=== PATIENT | male | born 1960 | race Caucasian/White ===

== ENCOUNTER 2018-03-30 10:23 | Emergency (ER) | payer MEDICARE, MEDICAID ==
[~2018-03-30] VITALS: Ht 182.9 cm; Wt 96.5 kg
[~2018-03-30 10:23] MED LIST: NO HOME MEDS
[2018-03-30 10:44] VITALS: BP 139/56
[2018-03-30 13:01] LABS: BASOPHILS # (AUTO) 0.1 X10'3 (0-0.2); BASOPHILS % (AUTO) 1.1 % (0-1); EOSINOPHILS # (AUTO) 0.3 X10'3 (0-0.9); EOSINOPHILS % (AUTO) 3.5 % (0-6); HEMATOCRIT 40.3 % (42.0-52.0); HEMOGLOBIN 13.2 g/dl (14.0-17.9); LYMPHOCYTES # (AUTO) 1.5 X10'3 (1.1-4.8); LYMPHOCYTES % (AUTO) 16.2 % (21-51); MEAN CORPUSCULAR HEMOGLOBIN 27.2 PG (27.0-31.0); MEAN CORPUSCULAR HGB CONC 32.8 % (33.0-36.5); MEAN PLATELET VOLUME 8.7 FL (7.4-10.4); MONOCYTES % (AUTO) 11.1 % (2-12); NEUTROPHILS # (AUTO) 6.3 X10'3 (1.8-7.7); NEUTROPHILS % (AUTO) 68.1 % (42-75); PLATELET COUNT 321 X10'3 (140-440); RED BLOOD COUNT 4.85 X10'6 (4.70-6.10); RED CELL DISTRIBUTION WIDTH 15.8 % (11.5-14.5); WHITE BLOOD COUNT 9.3 X10'3 (4.5-11.0)
[2018-03-30 13:16] LABS: ALANINE AMINOTRANSFERASE 12 U/L (12-78); ALBUMIN 3.2 G/DL (3.4-5.0); ALBUMIN/GLOBULIN RATIO 0.7 (1.1-1.5); ALKALINE PHOSPHATASE 107 IU/L (46-116); ANION GAP 11 (8-16); ASPARTATE AMINO TRANSFERASE 11 U/L (10-37); BILIRUBIN,TOTAL 0.3 MG/DL (0.1-1.0); BLOOD UREA NITROGEN 23 MG/DL (7-18); BUN/CREATININE RATIO 18.4 (5.4-32.0); CALCIUM 8.8 MG/DL (8.5-10.1); CHLORIDE 104 MMOL/L (99-107); CREATININE 1.25 MG/DL (0.60-1.10); GLUCOSE 122 MG/DL (70-104); POTASSIUM 4.1 MMOL/L (3.5-5.1); SODIUM 141 MMOL/L (135-145); TOTAL CARBON DIOXIDE 26.4 MMOL/L (24-32); TOTAL PROTEIN 7.6 G/DL (6.4-8.2); eGFR 59 ML/MIN
[2018-03-30] MEDS ORDERED: sulfamethoxazole/trimethoprim DS (800/160mg) tablet PO ONE (14:35)
[2018-03-30] MEDS ORDERED: cephalexin 500mg capsule PO ONE (14:35)
[2018-03-30] MEDS ORDERED: TETanus/Pertussis (Acell)/Diphther VAC/PF (Tdap-Adult) 0.5ml syringe IMVAC ONE (14:35)
[2018-03-30] MEDS ORDERED: CEPH500C2 PO (14:40)
[2018-03-30] MEDS ORDERED: BACDS PO (14:40)
[2018-03-30] MEDS ORDERED: MUPI22OI30 TOP (14:40)
== END 2018-03-30 14:56 | disposition home or self-care (01) ==
LOC: ER 10:25
DX: S91.104A Unspecified open wound of right lesser toe(s) without damage to nail, initial encounter (principal); I10 Essential (primary) hypertension; E11.9 Type 2 diabetes mellitus without complications; F12.90 Cannabis use, unspecified, uncomplicated; Z59.0 Homelessness; Z60.2 Problems related to living alone; Z79.2 Long term (current) use of antibiotics; Z79.899 Other long term (current) drug therapy; X58.XXXA Exposure to other specified factors, initial encounter; Y93.89 Activity, other specified; Y92.89 Other specified places as the place of occurrence of the external cause; Y99.8 Other external cause status
CPT/HCPCS: 36415; 73630; 80053; 82948; 85025; 85651; 90471; 90715; 99285

== ENCOUNTER 2018-04-22 08:50 | Day surgery (SDC) | payer MEDICARE, MEDICAID ==
[~2018-04-22 08:50] MED LIST changes: +CEPH500C2 PO
[2018-04-22] MEDS ORDERED: LIDOcaine 2% 5ml jelly ONE (12:03)
[2018-04-22] MEDS ORDERED: METF500T PO (12:17)
[2018-04-22] MEDS ORDERED: CLIN300C12 (12:18)
[2018-04-22 12:48] LABS: BASOPHILS # (AUTO) 0.1 X10'3 (0-0.2); BASOPHILS % (AUTO) 1.2 % (0-1); EOSINOPHILS # (AUTO) 0.2 X10'3 (0-0.9); EOSINOPHILS % (AUTO) 3.6 % (0-6); HEMATOCRIT 40.7 % (42.0-52.0); HEMOGLOBIN 13.3 g/dl (14.0-17.9); LYMPHOCYTES # (AUTO) 1.5 X10'3 (1.1-4.8); LYMPHOCYTES % (AUTO) 24.2 % (21-51); MEAN CORPUSCULAR HEMOGLOBIN 26.8 PG (27.0-31.0); MEAN CORPUSCULAR HGB CONC 32.7 % (33.0-36.5); MEAN CORPUSCULAR VOLUME 81.9 FL (78-98); MEAN PLATELET VOLUME 8.5 FL (7.4-10.4); MONOCYTES # (AUTO) 0.7 X10'3 (0-0.9); MONOCYTES % (AUTO) 10.3 % (2-12); NEUTROPHILS # (AUTO) 3.9 X10'3 (1.8-7.7); NEUTROPHILS % (AUTO) 60.7 % (42-75); PLATELET COUNT 365 X10'3 (140-440); RED BLOOD COUNT 4.96 X10'6 (4.70-6.10); RED CELL DISTRIBUTION WIDTH 14.5 % (11.5-14.5); WHITE BLOOD COUNT 6.4 X10'3 (4.5-11.0)
[2018-04-22 12:55] LABS: HEMOGLOBIN A1C 7.4 % (4.5-6.2)
[2018-04-22 13:12] LABS: ALANINE AMINOTRANSFERASE 16 U/L (12-78); ALBUMIN 3.4 G/DL (3.4-5.0); ALBUMIN/GLOBULIN RATIO 0.8 (1.1-1.5); ALKALINE PHOSPHATASE 86 IU/L (46-116); ANION GAP 7 (8-16); ASPARTATE AMINO TRANSFERASE 16 U/L (10-37); BILIRUBIN,TOTAL 0.3 MG/DL (0.1-1.0); BLOOD UREA NITROGEN 30 MG/DL (7-18); BUN/CREATININE RATIO 22.9 (5.4-32.0); CHLORIDE 105 MMOL/L (99-107); CREATININE 1.31 MG/DL (0.60-1.10); GLUCOSE 106 MG/DL (70-104); POTASSIUM 4.5 MMOL/L (3.5-5.1); PREALBUMIN 25.6 MG/DL (19-36); SODIUM 140 MMOL/L (135-145); TOTAL CARBON DIOXIDE 28.4 MMOL/L (24-32); TOTAL PROTEIN 7.9 G/DL (6.4-8.2); eGFR 56 ML/MIN
== END 2018-04-22 13:05 | disposition home or self-care (01) ==
LOC: WOUND CARE 08:50
PROVIDERS: ATTEND Surgery
DX: E11.621 Type 2 diabetes mellitus with foot ulcer (principal); L97.512 Non-pressure chronic ulcer of other part of right foot with fat layer exposed; E11.65 Type 2 diabetes mellitus with hyperglycemia; E11.40 Type 2 diabetes mellitus with diabetic neuropathy, unspecified; I10 Essential (primary) hypertension; F12.90 Cannabis use, unspecified, uncomplicated; Z79.2 Long term (current) use of antibiotics; Z79.899 Other long term (current) drug therapy
CPT/HCPCS: 11042; 36415; 36416; 80053; 82948; 83036; 84134; 85025; 85651; A6021; A6206; A6209; A6446; L3260

== ENCOUNTER 2018-04-29 08:45 | Day surgery (SDC) | payer MEDICARE, MEDICAID ==
[~2018-04-29 08:45] MED LIST changes: -CEPH500C2 PO; +CLIN300C12; +METF500T PO; -NO HOME MEDS
[2018-04-29] MEDS ORDERED: LIDOcaine 2% 5ml jelly ONE (10:07)
== END 2018-04-29 11:20 | disposition home or self-care (01) ==
LOC: WOUND CARE 08:45
PROVIDERS: ATTEND Surgery
DX: E11.621 Type 2 diabetes mellitus with foot ulcer (principal); L97.512 Non-pressure chronic ulcer of other part of right foot with fat layer exposed; E11.65 Type 2 diabetes mellitus with hyperglycemia; E11.40 Type 2 diabetes mellitus with diabetic neuropathy, unspecified; I10 Essential (primary) hypertension; F12.90 Cannabis use, unspecified, uncomplicated; Z79.2 Long term (current) use of antibiotics; Z79.899 Other long term (current) drug therapy
CPT/HCPCS: 11042; 36416; 82948; A6021; A6206; A6209; A6446

== ENCOUNTER 2018-05-20 09:27 | Day surgery (SDC) | payer MEDICARE, MEDICAID ==
[~2018-05-20 09:27] MED LIST changes: +CEPH-572 PO; -CLIN300C12
[2018-05-21] MEDS ORDERED: HYDR-3965 PO (09:33)
== END 2018-05-20 11:25 | disposition home or self-care (01) ==
LOC: WOUND CARE 09:27
PROVIDERS: ATTEND Surgery
DX: E11.621 Type 2 diabetes mellitus with foot ulcer (principal); L97.512 Non-pressure chronic ulcer of other part of right foot with fat layer exposed; E11.65 Type 2 diabetes mellitus with hyperglycemia; E11.40 Type 2 diabetes mellitus with diabetic neuropathy, unspecified; I10 Essential (primary) hypertension; F12.90 Cannabis use, unspecified, uncomplicated; Z79.2 Long term (current) use of antibiotics; Z79.899 Other long term (current) drug therapy
CPT/HCPCS: 11042; 36416; 82948; A6021; A6209; A6222; A6446

== ENCOUNTER 2018-05-21 08:38 | Emergency (ER) | payer MEDICARE, MEDICAID ==
[~2018-05-21] VITALS: Ht 182.9 cm; Wt 86.4 kg
[2018-05-21 08:41] VITALS: BP 148/62
[2018-05-21] MEDS ORDERED: HYDR-3965 PO (09:33)
[2018-05-21] MEDS ORDERED: HYDROcodone/acetaminophen 10/325mg tab PO ONE (09:35)
[2018-05-21] MEDS ORDERED: insulin regular, human 10 units/0.1 ml syringe SQ ONE (09:35)
== END 2018-05-21 10:23 | disposition home or self-care (01) ==
LOC: ER 08:38
DX: E11.622 Type 2 diabetes mellitus with other skin ulcer (principal); L97.519 Non-pressure chronic ulcer of other part of right foot with unspecified severity; I10 Essential (primary) hypertension; F12.90 Cannabis use, unspecified, uncomplicated; Z59.0 Homelessness; X58.XXXA Exposure to other specified factors, initial encounter; Y93.89 Activity, other specified; Y92.89 Other specified places as the place of occurrence of the external cause; Y99.8 Other external cause status
CPT/HCPCS: 82948; 96372; 99284; J1815; 99283; J7030

== ENCOUNTER 2018-05-27 08:40 | Day surgery (SDC) | payer MEDICARE, MEDICAID ==
[~2018-05-27 08:40] MED LIST changes: +HYDR-3965 PO
[2018-05-27] MEDS ORDERED: LIDOcaine/PRILOcaine 5gm cream TP ONE (09:46)
== END 2018-05-27 11:20 | disposition home or self-care (01) ==
LOC: WOUND CARE 08:40
PROVIDERS: ATTEND Surgery
DX: E11.621 Type 2 diabetes mellitus with foot ulcer (principal); L97.512 Non-pressure chronic ulcer of other part of right foot with fat layer exposed; E11.65 Type 2 diabetes mellitus with hyperglycemia; E11.40 Type 2 diabetes mellitus with diabetic neuropathy, unspecified; I10 Essential (primary) hypertension; F12.90 Cannabis use, unspecified, uncomplicated; Z79.2 Long term (current) use of antibiotics; Z79.899 Other long term (current) drug therapy
CPT/HCPCS: 11042; 36416; 82948; 87070; 87075; 87102; 87176; 87186; A6021; A6206; A6209; A6446; 87077

== ENCOUNTER 2018-06-03 08:48 | Day surgery (SDC) | payer MEDICARE, MEDICAID ==
[2018-06-03] MEDS ORDERED: LIDOcaine/PRILOcaine 5gm cream TP ONE (10:57)
[2018-06-03] MEDS ORDERED: LIDOcaine 1%/PF 5ML 10 MG/ML VIAL ONE (11:26)
== END 2018-06-03 12:35 | disposition home or self-care (01) ==
LOC: WOUND CARE 08:48
PROVIDERS: ATTEND Surgery
DX: E11.621 Type 2 diabetes mellitus with foot ulcer (principal); L97.512 Non-pressure chronic ulcer of other part of right foot with fat layer exposed; E11.65 Type 2 diabetes mellitus with hyperglycemia; E11.40 Type 2 diabetes mellitus with diabetic neuropathy, unspecified; I10 Essential (primary) hypertension; F12.90 Cannabis use, unspecified, uncomplicated; Z79.2 Long term (current) use of antibiotics; Z79.899 Other long term (current) drug therapy
CPT/HCPCS: 11042; 36416; 82948; A6206; A6266; A6446; J2001

== ENCOUNTER 2018-06-06 09:39 | Day surgery (SDC) | payer MEDICARE, MEDICAID ==
[~2018-06-06 09:39] MED LIST changes: -CEPH-572 PO
[2018-06-06] MEDS ORDERED: AMOX-422 PO (14:27)
== END 2018-06-06 12:03 | disposition home or self-care (01) ==
LOC: WOUND CARE 09:39
PROVIDERS: ATTEND Surgery
DX: E11.621 Type 2 diabetes mellitus with foot ulcer (principal); L97.512 Non-pressure chronic ulcer of other part of right foot with fat layer exposed; E11.65 Type 2 diabetes mellitus with hyperglycemia; E11.40 Type 2 diabetes mellitus with diabetic neuropathy, unspecified; I10 Essential (primary) hypertension; F12.10 Cannabis abuse, uncomplicated; Z79.2 Long term (current) use of antibiotics; Z79.899 Other long term (current) drug therapy
CPT/HCPCS: 11042; 36416; 82948; A6206; A6266; A6446

== ENCOUNTER 2018-06-10 09:38 | Day surgery (SDC) | payer MEDICARE, MEDICAID ==
[~2018-06-10 09:38] MED LIST changes: +AMOX-422 PO
[2018-06-10] MEDS ORDERED: LIDOcaine/PRILOcaine 5gm cream TP ONE (11:04)
[2018-06-10] MEDS ORDERED: LIDOcaine 1%/PF 5ML 10 MG/ML VIAL ONE (11:18)
== END 2018-06-10 12:09 | disposition home or self-care (01) ==
LOC: WOUND CARE 09:38
PROVIDERS: ATTEND Surgery
DX: E11.621 Type 2 diabetes mellitus with foot ulcer (principal); L97.512 Non-pressure chronic ulcer of other part of right foot with fat layer exposed; E11.65 Type 2 diabetes mellitus with hyperglycemia; E11.40 Type 2 diabetes mellitus with diabetic neuropathy, unspecified; I10 Essential (primary) hypertension; F12.10 Cannabis abuse, uncomplicated; Z79.2 Long term (current) use of antibiotics; Z79.899 Other long term (current) drug therapy
CPT/HCPCS: 11044; 36416; 82948; A6206; A6266; A6446; J2001

== ENCOUNTER 2018-06-13 09:36 | Day surgery (SDC) | payer MEDICARE, MEDICAID ==
[2018-06-13] MEDS ORDERED: LIDOcaine/PRILOcaine 5gm cream TP ONE (11:22)
== END 2018-06-13 12:17 | disposition home or self-care (01) ==
LOC: WOUND CARE 09:36
PROVIDERS: ATTEND Surgery
DX: E11.621 Type 2 diabetes mellitus with foot ulcer (principal); L97.514 Non-pressure chronic ulcer of other part of right foot with necrosis of bone; E11.65 Type 2 diabetes mellitus with hyperglycemia; E11.40 Type 2 diabetes mellitus with diabetic neuropathy, unspecified; I10 Essential (primary) hypertension; F12.10 Cannabis abuse, uncomplicated; Z79.2 Long term (current) use of antibiotics; Z79.899 Other long term (current) drug therapy
CPT/HCPCS: 11044; 36416; 82948; A6206; A6266; A6446

== ENCOUNTER 2018-06-17 09:35 | Day surgery (SDC) | payer MEDICARE, MEDICAID | END 2018-06-17 12:19 | disposition home or self-care (01) | LOC: WOUND CARE 09:35 | PROVIDERS: ATTEND Surgery | DX: E11.621 Type 2 diabetes mellitus with foot ulcer (principal); L97.514 Non-pressure chronic ulcer of other part of right foot with necrosis of bone; E11.65 Type 2 diabetes mellitus with hyperglycemia; E11.40 Type 2 diabetes mellitus with diabetic neuropathy, unspecified; I10 Essential (primary) hypertension; F12.10 Cannabis abuse, uncomplicated; Z79.2 Long term (current) use of antibiotics; Z79.899 Other long term (current) drug therapy | CPT/HCPCS: 11044; 36416; 82948; A6021; A6206; A6209; A6446; 88305; 88311 ==

== ENCOUNTER 2018-06-20 09:40 | Day surgery (SDC) | payer MEDICARE, MEDICAID ==
[2018-06-20] MEDS ORDERED: LIDOcaine/PRILOcaine 5gm cream TP ONE (11:29)
== END 2018-06-20 13:17 | disposition home or self-care (01) ==
LOC: WOUND CARE 09:40
PROVIDERS: ATTEND Surgery
DX: E11.621 Type 2 diabetes mellitus with foot ulcer (principal); L97.514 Non-pressure chronic ulcer of other part of right foot with necrosis of bone; E11.65 Type 2 diabetes mellitus with hyperglycemia; E11.40 Type 2 diabetes mellitus with diabetic neuropathy, unspecified; I10 Essential (primary) hypertension; E11.69 Type 2 diabetes mellitus with other specified complication; M86.171 Other acute osteomyelitis, right ankle and foot; F12.10 Cannabis abuse, uncomplicated; Z79.2 Long term (current) use of antibiotics; Z79.899 Other long term (current) drug therapy
CPT/HCPCS: 11042; 36416; 82948; A6021; A6206; A6209; A6446

== ENCOUNTER 2018-06-24 09:38 | Day surgery (SDC) | payer MEDICARE, MEDICAID ==
[~2018-06-24 09:38] MED LIST changes: -HYDR-3965 PO
== END 2018-06-24 12:50 | disposition home or self-care (01) ==
LOC: WOUND CARE 09:38
PROVIDERS: ATTEND Surgery
DX: E11.621 Type 2 diabetes mellitus with foot ulcer (principal); L97.514 Non-pressure chronic ulcer of other part of right foot with necrosis of bone; E11.65 Type 2 diabetes mellitus with hyperglycemia; E11.40 Type 2 diabetes mellitus with diabetic neuropathy, unspecified; I10 Essential (primary) hypertension; E11.69 Type 2 diabetes mellitus with other specified complication; M86.171 Other acute osteomyelitis, right ankle and foot; F12.10 Cannabis abuse, uncomplicated; Z79.2 Long term (current) use of antibiotics; Z79.899 Other long term (current) drug therapy
CPT/HCPCS: 11042; 36416; 82948; A6021; A6206; A6209; A6446

== ENCOUNTER 2018-07-01 08:54 | Day surgery (SDC) | payer MEDICARE, MEDICAID ==
[2018-07-01] MEDS ORDERED: LIDOcaine/PRILOcaine 5gm cream TP ONE (11:16)
== END 2018-07-01 12:40 | disposition home or self-care (01) ==
LOC: WOUND CARE 08:54
PROVIDERS: ATTEND Surgery
DX: E11.621 Type 2 diabetes mellitus with foot ulcer (principal); L97.514 Non-pressure chronic ulcer of other part of right foot with necrosis of bone; E11.65 Type 2 diabetes mellitus with hyperglycemia; E11.40 Type 2 diabetes mellitus with diabetic neuropathy, unspecified; I10 Essential (primary) hypertension; E11.69 Type 2 diabetes mellitus with other specified complication; M86.171 Other acute osteomyelitis, right ankle and foot; F12.10 Cannabis abuse, uncomplicated; Z79.2 Long term (current) use of antibiotics; Z79.899 Other long term (current) drug therapy
CPT/HCPCS: 11042; 36416; 82948; A6021; A6206; A6209

== ENCOUNTER 2018-07-08 09:01 | Day surgery (SDC) | payer MEDICARE, MEDICAID | END 2018-07-08 12:28 | disposition home or self-care (01) | LOC: WOUND CARE 09:01 | PROVIDERS: ATTEND Surgery | DX: E11.621 Type 2 diabetes mellitus with foot ulcer (principal); L97.514 Non-pressure chronic ulcer of other part of right foot with necrosis of bone; E11.65 Type 2 diabetes mellitus with hyperglycemia; E11.40 Type 2 diabetes mellitus with diabetic neuropathy, unspecified; I10 Essential (primary) hypertension; E11.69 Type 2 diabetes mellitus with other specified complication; M86.171 Other acute osteomyelitis, right ankle and foot; F12.10 Cannabis abuse, uncomplicated; Z79.2 Long term (current) use of antibiotics; Z79.899 Other long term (current) drug therapy | CPT/HCPCS: 11042; 36416; 82948; A6021; A6206; A6209; A6446 ==

== ENCOUNTER 2018-07-15 08:38 | Day surgery (SDC) | payer MEDICARE, MEDICAID | END 2018-07-15 11:39 | disposition home or self-care (01) | LOC: WOUND CARE 08:38 | PROVIDERS: ATTEND Surgery | DX: E11.621 Type 2 diabetes mellitus with foot ulcer (principal); L97.514 Non-pressure chronic ulcer of other part of right foot with necrosis of bone; E11.65 Type 2 diabetes mellitus with hyperglycemia; E11.40 Type 2 diabetes mellitus with diabetic neuropathy, unspecified; I10 Essential (primary) hypertension; E11.69 Type 2 diabetes mellitus with other specified complication; M86.171 Other acute osteomyelitis, right ankle and foot; F12.10 Cannabis abuse, uncomplicated; Z79.2 Long term (current) use of antibiotics; Z79.899 Other long term (current) drug therapy | CPT/HCPCS: 36416; 82948; A6209; A6222; C5275; Q4102; A6250; A6446 ==

== ENCOUNTER 2018-07-22 08:40 | Day surgery (SDC) | payer MEDICARE, MEDICAID ==
[~2018-07-22 08:40] MED LIST changes: -AMOX-422 PO
[2018-07-22] MEDS ORDERED: LIDOcaine/PRILOcaine 5gm cream TP ONE (09:51)
== END 2018-07-22 11:15 | disposition home or self-care (01) ==
LOC: WOUND CARE 08:40
PROVIDERS: ATTEND Surgery
DX: E11.621 Type 2 diabetes mellitus with foot ulcer (principal); L97.514 Non-pressure chronic ulcer of other part of right foot with necrosis of bone; E11.65 Type 2 diabetes mellitus with hyperglycemia; E11.40 Type 2 diabetes mellitus with diabetic neuropathy, unspecified; I10 Essential (primary) hypertension; E11.69 Type 2 diabetes mellitus with other specified complication; M86.171 Other acute osteomyelitis, right ankle and foot; F12.10 Cannabis abuse, uncomplicated; Z79.2 Long term (current) use of antibiotics; Z79.899 Other long term (current) drug therapy
CPT/HCPCS: 36416; 82948; 97597; A6209; A6446

== ENCOUNTER 2018-07-29 08:33 | Day surgery (SDC) | payer MEDICARE, MEDICAID ==
[2018-07-29] MEDS ORDERED: LIDOcaine/PRILOcaine 5gm cream TP ONE (09:36)
== END 2018-07-29 10:56 | disposition home or self-care (01) ==
LOC: WOUND CARE 08:33
PROVIDERS: ATTEND Surgery
DX: E11.621 Type 2 diabetes mellitus with foot ulcer (principal); L97.514 Non-pressure chronic ulcer of other part of right foot with necrosis of bone; E11.65 Type 2 diabetes mellitus with hyperglycemia; E11.40 Type 2 diabetes mellitus with diabetic neuropathy, unspecified; I10 Essential (primary) hypertension; E11.69 Type 2 diabetes mellitus with other specified complication; M86.171 Other acute osteomyelitis, right ankle and foot; F12.10 Cannabis abuse, uncomplicated; Z79.2 Long term (current) use of antibiotics; Z79.899 Other long term (current) drug therapy
CPT/HCPCS: 36416; 82948; A6209; A6222; C5275; Q4102; A6250

== ENCOUNTER 2018-08-05 08:30 | Day surgery (SDC) | payer MEDICARE, MEDICAID ==
[2018-08-05] MEDS ORDERED: LIDOcaine/PRILOcaine 5gm cream TP ONE (09:49)
== END 2018-08-05 11:32 | disposition home or self-care (01) ==
LOC: WOUND CARE 08:30
PROVIDERS: ATTEND Surgery
DX: E11.621 Type 2 diabetes mellitus with foot ulcer (principal); L97.514 Non-pressure chronic ulcer of other part of right foot with necrosis of bone; E11.65 Type 2 diabetes mellitus with hyperglycemia; E11.40 Type 2 diabetes mellitus with diabetic neuropathy, unspecified; I10 Essential (primary) hypertension; E11.69 Type 2 diabetes mellitus with other specified complication; M86.171 Other acute osteomyelitis, right ankle and foot; F12.10 Cannabis abuse, uncomplicated; Z79.2 Long term (current) use of antibiotics; Z79.899 Other long term (current) drug therapy
CPT/HCPCS: 36416; 82948; A6209; C5275; Q4102; A6250; A6446

== ENCOUNTER 2018-08-12 09:00 | Outpatient (CLI) | payer MEDICARE, MEDICAID | END 2018-08-12 11:19 | disposition home or self-care (01) | LOC: WOUND CARE 09:00 → EDSTATUS 09:00 → WOUND CARE 11:19 | PROVIDERS: ATTEND Surgery | DX: E11.621 Type 2 diabetes mellitus with foot ulcer (principal); L97.514 Non-pressure chronic ulcer of other part of right foot with necrosis of bone; E11.65 Type 2 diabetes mellitus with hyperglycemia; E11.40 Type 2 diabetes mellitus with diabetic neuropathy, unspecified; I10 Essential (primary) hypertension; E11.69 Type 2 diabetes mellitus with other specified complication; M86.171 Other acute osteomyelitis, right ankle and foot; F12.10 Cannabis abuse, uncomplicated; Z79.2 Long term (current) use of antibiotics; Z79.899 Other long term (current) drug therapy | CPT/HCPCS: 36416; 82948; 99215; A6209; A6206; A6446 ==

== ENCOUNTER 2018-08-19 08:54 | Outpatient (CLI) | payer MEDICARE, MEDICAID | END 2018-08-19 10:05 | disposition home or self-care (01) | LOC: WOUND CARE 08:54 → EDSTATUS 09:00 → WOUND CARE 10:05 | PROVIDERS: ATTEND Surgery | DX: E11.621 Type 2 diabetes mellitus with foot ulcer (principal); L97.514 Non-pressure chronic ulcer of other part of right foot with necrosis of bone; E11.65 Type 2 diabetes mellitus with hyperglycemia; E11.40 Type 2 diabetes mellitus with diabetic neuropathy, unspecified; I10 Essential (primary) hypertension; E11.69 Type 2 diabetes mellitus with other specified complication; M86.171 Other acute osteomyelitis, right ankle and foot; F12.10 Cannabis abuse, uncomplicated; Z79.2 Long term (current) use of antibiotics; Z79.899 Other long term (current) drug therapy | CPT/HCPCS: 36416; 82948; 99211; 99214; A6021; A6206; A6212 ==

== ENCOUNTER 2018-08-26 08:09 | Day surgery (SDC) | payer MEDICARE, MEDICAID ==
[2018-08-26] MEDS ORDERED: LIDOcaine/PRILOcaine 5gm cream TP ONE (09:39)
== END 2018-08-26 11:19 | disposition home or self-care (01) ==
LOC: WOUND CARE 08:09
PROVIDERS: ATTEND Surgery
DX: E11.621 Type 2 diabetes mellitus with foot ulcer (principal); L97.514 Non-pressure chronic ulcer of other part of right foot with necrosis of bone; E11.65 Type 2 diabetes mellitus with hyperglycemia; E11.40 Type 2 diabetes mellitus with diabetic neuropathy, unspecified; I10 Essential (primary) hypertension; E11.69 Type 2 diabetes mellitus with other specified complication; M86.171 Other acute osteomyelitis, right ankle and foot; F12.10 Cannabis abuse, uncomplicated; Z79.2 Long term (current) use of antibiotics; Z79.899 Other long term (current) drug therapy
CPT/HCPCS: 36416; 82948; A6021; A6206; A6446

== ENCOUNTER 2018-09-04 08:39 | Day surgery (SDC) | payer MEDICARE, MEDICAID ==
[2018-09-04] MEDS ORDERED: LIDOcaine 2% 5ml jelly MM ONE (15:50)
== END 2018-09-04 11:53 | disposition home or self-care (01) ==
LOC: WOUND CARE 08:39
PROVIDERS: ATTEND Surgery
DX: E11.621 Type 2 diabetes mellitus with foot ulcer (principal); L97.514 Non-pressure chronic ulcer of other part of right foot with necrosis of bone; E11.65 Type 2 diabetes mellitus with hyperglycemia; E11.40 Type 2 diabetes mellitus with diabetic neuropathy, unspecified; I10 Essential (primary) hypertension; E11.69 Type 2 diabetes mellitus with other specified complication; M86.171 Other acute osteomyelitis, right ankle and foot; F12.10 Cannabis abuse, uncomplicated; Z79.2 Long term (current) use of antibiotics; Z79.899 Other long term (current) drug therapy
CPT/HCPCS: 11042; 36416; 82948; A6209; A6021; A6206; A6446

== ENCOUNTER 2018-09-11 08:40 | Day surgery (SDC) | payer MEDICARE, MEDICAID ==
--- NOTE | 2018-09-11 11:30 | NUR ---
Patient ambulated with rolling walker from [facility] and was admitted to outpatient wound care for physician visit with Martinez Gar MD. Dressing removed, wound cleansed and lidocaine applied per order. Patient assessed for changes in conditions, medications and medical history. 0946 - blood glucose 279. Patient instructed that elevated blood sugars delay healing of the wound and can cause further complications including but not limited to amputation of toes or feet. 1030 - Dr. Gar at bedside accompanied by RN. Wound assessed, time out performed by MD/RN. Wound debrided as detailed in the physician progress/procedure note. Plan of care discussed with patient. Dressings placed per MD orders. Rx for Nix for lice given to patient and instructions for treating lice (getting rid of all clothes, bedding etc after treatment) are discussed with patient by RN. Patient instructed on the signs and symptoms of infection and to call the Wound Center if any occur or to go to the ED if we are closed: Increased pain in wound Increase in drainage from the wound Redness in the skin surrounding the wound Bleeding from the wound Temperature of 101 or greater Patient instructed that the weight of their body puts a large amount of pressure on their wounds. This pressure keeps the new tissue from growing and inhibits new blood vessels from forming. Explained that, if they continue to bear weight on a body part that has a wound, the time it takes to heal the wound increases, the wound may get worse or the wound may not heal at all. Patient verbalized understanding of all discharge instructions and plan of care and ambulated with rolling walker out to [facility] in stable condition with no sign or symptom of distress at time of discharge.
[2018-09-11] MEDS ORDERED: PERM324. (15:40)
== END 2018-09-11 11:31 | disposition home or self-care (01) ==
LOC: WOUND CARE 08:40
PROVIDERS: ATTEND Surgery
DX: E11.621 Type 2 diabetes mellitus with foot ulcer (principal); L97.514 Non-pressure chronic ulcer of other part of right foot with necrosis of bone; E11.65 Type 2 diabetes mellitus with hyperglycemia; E11.40 Type 2 diabetes mellitus with diabetic neuropathy, unspecified; I10 Essential (primary) hypertension; E11.69 Type 2 diabetes mellitus with other specified complication; M86.171 Other acute osteomyelitis, right ankle and foot; F12.10 Cannabis abuse, uncomplicated; Z79.2 Long term (current) use of antibiotics; Z79.899 Other long term (current) drug therapy
CPT/HCPCS: 15275; 36416; 82948; A6209; A6222; Q4187; A6250; A6446

== ENCOUNTER 2018-09-23 00:18 | Emergency (ER) | payer MEDICARE, MEDICAID ==
[~2018-09-23] VITALS: Ht 182.9 cm; Wt 85.0 kg
[~2018-09-23 00:18] MED LIST changes: +PERM324.
[2018-09-23 00:38] VITALS: BP 122/73
[2018-09-23] MEDS ORDERED: TRIA15CR62 TP (01:37)
== END 2018-09-23 01:10 | disposition home or self-care (01) ==
LOC: ER 00:19
DX: S60.562A Insect bite (nonvenomous) of left hand, initial encounter (principal); S60.561A Insect bite (nonvenomous) of right hand, initial encounter; S80.862A Insect bite (nonvenomous), left lower leg, initial encounter; S80.861A Insect bite (nonvenomous), right lower leg, initial encounter; I10 Essential (primary) hypertension; E11.9 Type 2 diabetes mellitus without complications; F12.90 Cannabis use, unspecified, uncomplicated; Z59.0 Homelessness; W57.XXXA Bitten or stung by nonvenomous insect and other nonvenomous arthropods, initial encounter; Y93.89 Activity, other specified; Y92.89 Other specified places as the place of occurrence of the external cause; Y99.8 Other external cause status
CPT/HCPCS: 99283

== ENCOUNTER 2019-01-17 16:42 | Emergency (ER) | payer MEDICAID, MEDICARE ==
[~2019-01-17] VITALS: Ht 182.9 cm; Wt 97.0 kg
[2019-01-17 17:29] VITALS: BP 142/78
--- NOTE | 2019-01-17 17:51 | NUR ---
PT STATES MY FEET ARE HURTING I HAVE NEUROPATHY, AND ITS GETTING HARDER TO WALK.
--- NOTE | 2019-01-17 17:54 | NUR ---
BG 190
[2019-01-17] MEDS ORDERED: GABA-532 PO (18:51)
[2019-01-17] MEDS ORDERED: CEPH-572 PO (18:51)
== END 2019-01-17 19:06 | disposition home or self-care (01) ==
LOC: ER 16:43
DX: L03.115 Cellulitis of right lower limb (principal); E11.40 Type 2 diabetes mellitus with diabetic neuropathy, unspecified; I10 Essential (primary) hypertension; F12.90 Cannabis use, unspecified, uncomplicated; Z59.0 Homelessness
CPT/HCPCS: 73630; 82948; 99284

== ENCOUNTER 2019-01-21 19:11 | Emergency (ER) | payer MEDICARE ==
[~2019-01-21] VITALS: Ht 182.9 cm; Wt 104.5 kg
[~2019-01-21 19:11] MED LIST changes: +CEPH-572 PO; +GABA-532 PO
[2019-01-21 19:24] VITALS: BP 157/67
--- NOTE | 2019-01-21 19:43 | NUR ---
PT STATES HE IS HERE FOR RIGHT FOOT PAIN FROM NEUROPATHY, STATES HE FELT A "POPPING" IN HIS ANKLE TODAY, DENIES RECENT INJURY TO FOOT OR ANKLE
[2019-01-21] MEDS ORDERED: NAPR-56 PO (21:43)
--- NOTE | 2019-01-21 22:30 | NUR ---
pt was partially bathed before discharge, had stool dripping down his legs. given fresh clothing and a meal, declined bus pass
== END 2019-01-21 22:29 | disposition home or self-care (01) ==
LOC: ER 19:12
DX: S93.491A Sprain of other ligament of right ankle, initial encounter (principal); I10 Essential (primary) hypertension; F12.90 Cannabis use, unspecified, uncomplicated; E11.42 Type 2 diabetes mellitus with diabetic polyneuropathy; Z59.0 Homelessness; Z98.890 Other specified postprocedural states; Z79.899 Other long term (current) drug therapy; X50.1XXA Overexertion from prolonged static or awkward postures, initial encounter; Y93.89 Activity, other specified; Y92.89 Other specified places as the place of occurrence of the external cause; Y99.9 Unspecified external cause status
CPT/HCPCS: 73600; 99284

== ENCOUNTER 2019-12-10 09:30 | Emergency (ER) | payer MEDICARE, OTHER ==
[~2019-12-10] VITALS: Ht 182.9 cm; Wt 100.0 kg
[~2019-12-10 09:30] MED LIST changes: +AMA1T PO; +ASPI-1071 PO; -CEPH-572 PO; -GABA-532 PO; +LACT1CAP26 PO; +LEVO500T89 PO; +LISI-600 PO; +METF-950 PO; -METF500T PO; -PERM324.; +SITA100T11 PO
[2019-12-10 09:41] VITALS: BP 135/70
== END 2019-12-10 09:59 | disposition home or self-care (01) ==
LOC: ER 09:30
DX: Z48.02 Encounter for removal of sutures (principal); I10 Essential (primary) hypertension; Z90.49 Acquired absence of other specified parts of digestive tract; Z98.890 Other specified postprocedural states; Z59.0 Homelessness; Z79.82 Long term (current) use of aspirin; Z79.899 Other long term (current) drug therapy
CPT/HCPCS: 99281

== ENCOUNTER 2020-02-06 10:09 | Emergency (ER) | payer MEDICARE ==
[~2020-02-06] VITALS: Ht 183.5 cm; Wt 220.0 kg
[~2020-02-06 10:09] MED LIST changes: -AMA1T PO; -LEVO500T89 PO; -METF-950 PO
[2020-02-06] MEDS ORDERED: normal saline 1000ml 1,000 ML IV ONE ×2 (10:55→12:15)
[2020-02-06 11:11] LABS: CLARITY,URINE CLEAR (Clear); COLOR,URINE STRAW (Yellow); GLUCOSE, URINE >=1000 mg/dl (Neg); KETONES,URINE NEGATIVE (Neg); LEUKOCYTE ESTERASE ,URINE NEGATIVE (Neg); NITRITES, URINE NEGATIVE (Neg); OCCULT BLOOD,URINE NEGATIVE (Neg); PH,URINE 5.5 (4.8-8.0); PROTEIN,URINE NEGATIVE (Neg); UROBILINOGEN,URINE 0.2 E.U/dL (0.2-1.0)
[2020-02-06 11:12] LABS: UA COLLECTION TYPE URINAL
[2020-02-06 11:18] LABS: WBC,URINE 0-4 /HPF (0-4)
[2020-02-06 11:19] LABS: BACTERIA,URINE NONE SEEN /HPF (Neg); RBC,URINE 0-2 /HPF (0-2); SQUAMOUS EPITHELIAL CELL,UR FEW /LPF (FEW); YEAST FEW /HPF (NEGATIVE)
[2020-02-06 11:42] LABS: BASOPHILS # (AUTO) 0.1 X10'3 (0-0.2); BASOPHILS % (AUTO) 1.1 % (0-1); EOSINOPHILS # (AUTO) 0.2 X10'3 (0-0.9); EOSINOPHILS % (AUTO) 3.2 % (0-6); HEMATOCRIT 41.1 % (42.0-52.0); HEMOGLOBIN 13.3 g/dl (14.0-17.9); LYMPHOCYTES # (AUTO) 1.3 X10'3 (1.1-4.8); MEAN CORPUSCULAR HGB CONC 32.3 g/dL (33.0-36.5); MEAN CORPUSCULAR VOLUME 83.7 FL (78-98); MONOCYTES # (AUTO) 0.6 X10'3 (0-0.9); MONOCYTES % (AUTO) 9.9 % (2-12); NEUTROPHILS # (AUTO) 3.9 X10'3 (1.8-7.7); NEUTROPHILS % (AUTO) 63.8 % (42-75); PLATELET COUNT 281 X10'3 (140-440); RED BLOOD COUNT 4.91 X10'6 (4.70-6.10); RED CELL DISTRIBUTION WIDTH 15.9 % (11.5-14.5); WHITE BLOOD COUNT 6.1 X10'3 (4.5-11.0)
[2020-02-06 11:57] LABS: ALANINE AMINOTRANSFERASE 24 U/L (12-78); ALBUMIN 2.9 G/DL (3.4-5.0); ALBUMIN/GLOBULIN RATIO 0.7 (1.1-1.5); ALKALINE PHOSPHATASE 102 IU/L (46-116); ANION GAP 7 (8-16); ASPARTATE AMINO TRANSFERASE 17 U/L (10-37); BILIRUBIN,TOTAL 0.2 MG/DL (0.1-1.0); BLOOD UREA NITROGEN 55 MG/DL (7-18); BUN/CREATININE RATIO 33.1 (5.4-32.0); CALCIUM 8.3 MG/DL (8.5-10.1); CHLORIDE 99 MMOL/L (99-107); CREATININE 1.66 MG/DL (0.60-1.10); LIPASE 480 U/L (73-393); SODIUM 130 MMOL/L (135-145); TOTAL PROTEIN 6.8 G/DL (6.4-8.2); eGFR 42 ML/MIN
[2020-02-06 12:03] LABS: POTASSIUM 4.7 MMOL/L (3.5-5.1)
[2020-02-06 12:12] LABS: GLUCOSE 654 MG/DL (70-104)
[2020-02-06] MEDS ORDERED: insulin regular, human U-100 3ml vial - multi-dose IV ONE (13:05)
[2020-02-06 16:15] VITALS: BP 152/77
== END 2020-02-06 16:07 | disposition home or self-care (01) ==
LOC: ER 10:10
DX: E11.65 Type 2 diabetes mellitus with hyperglycemia (principal); E11.42 Type 2 diabetes mellitus with diabetic polyneuropathy; I10 Essential (primary) hypertension; Z98.890 Other specified postprocedural states; Z59.0 Homelessness; Z79.82 Long term (current) use of aspirin; Z79.899 Other long term (current) drug therapy
CPT/HCPCS: 36415; 80053; 81001; 82948; 83690; 85025; 96361; 96374; 99284; J7030; J1815

== ENCOUNTER 2021-02-07 02:51 | Emergency (ER) | payer MEDICARE, MEDICAID ==
[~2021-02-07] VITALS: Ht 180.3 cm; Wt 102.7 kg
[~2021-02-07 02:51] MED LIST changes: -LISI-600 PO; +LISI20TA28 PO
[2021-02-07] MEDS ORDERED: normal saline 1000ml 1,000 ML IV ONE (03:00)
--- NOTE | 2021-02-07 03:06 | NUR ---
pt has slight left facial droop.
--- NOTE | 2021-02-07 03:31 | NUR ---
PERSONAL BELONGINGS STORED OUTSIDE IN [facility] SHOWER AREA
[2021-02-07 03:47] LABS: BASOPHILS # (AUTO) 0.1 X10'3 (0-0.2); BASOPHILS % (AUTO) 0.8 % (0-1); EOSINOPHILS # (AUTO) 0.2 X10'3 (0-0.9); EOSINOPHILS % (AUTO) 1.9 % (0-6); HEMATOCRIT 50.1 % (42.0-52.0); HEMOGLOBIN 16.6 g/dl (14.0-17.9); LYMPHOCYTES # (AUTO) 1.2 X10'3 (1.1-4.8); LYMPHOCYTES % (AUTO) 10.7 % (21-51); MEAN CORPUSCULAR HEMOGLOBIN 27.8 PG (27.0-31.0); MEAN CORPUSCULAR HGB CONC 33.1 g/dL (33.0-36.5); MEAN PLATELET VOLUME 9.4 FL (7.4-10.4); MONOCYTES % (AUTO) 9.1 % (2-12); NEUTROPHILS # (AUTO) 8.5 X10'3 (1.8-7.7); NEUTROPHILS % (AUTO) 77.5 % (42-75); PLATELET COUNT 352 X10'3 (140-440); RED BLOOD COUNT 5.96 X10'6 (4.70-6.10)
[2021-02-07 03:58] LABS: ALANINE AMINOTRANSFERASE 17 U/L (12-78); ALBUMIN/GLOBULIN RATIO 0.8 (1.1-1.5); ALKALINE PHOSPHATASE 133 IU/L (46-116); ANION GAP 13 (8-16); ASPARTATE AMINO TRANSFERASE 14 U/L (10-37); BILIRUBIN,TOTAL 0.8 MG/DL (0.1-1.0); BLOOD UREA NITROGEN 36 MG/DL (7-18); BUN/CREATININE RATIO 18.4 (5.4-32.0); CALCIUM 10.2 MG/DL (8.5-10.1); CHLORIDE 103 MMOL/L (99-107); CREATININE 1.96 MG/DL (0.60-1.10); GLUCOSE 431 MG/DL (70-104); POTASSIUM 4.6 MMOL/L (3.5-5.1); SODIUM 141 MMOL/L (135-145); TOTAL CARBON DIOXIDE 25.2 MMOL/L (24-32); TOTAL PROTEIN 8.8 G/DL (6.4-8.2); eGFR 35 ML/MIN
--- NOTE | 2021-02-07 05:08 | NUR ---
PT ASSESSED AND FOUND TO HAVE SLIGHT FACIAL DROOP. PT CT DONE PRECAUTIONARY. PT GAIT TESTED AND FOUND TO BE ABLE TO AMBULATE WITH WALKER. NEURO ASSESSMENT SHOWED NO OTHER POSITIVE SYMPTOMS BESIDES THE FACIAL DROOP.
[2021-02-07 05:11] VITALS: BP 146/78
[2021-02-07 05:41] LABS: CLARITY,URINE CLEAR (Clear); COLOR,URINE YELLOW (Yellow); GLUCOSE, URINE >=1000 mg/dl (Neg); KETONES,URINE NEGATIVE (Neg); LEUKOCYTE ESTERASE ,URINE NEGATIVE (Neg); NITRITES, URINE NEGATIVE (Neg); OCCULT BLOOD,URINE NEGATIVE (Neg); PROTEIN,URINE TRACE mg/dl (Neg); UROBILINOGEN,URINE 0.2 E.U/dL (0.2-1.0)
[2021-02-07 05:46] LABS: UA COLLECTION TYPE CLN CATCH MIDSTREAM
[2021-02-07 05:53] LABS: BACTERIA,URINE NONE SEEN /HPF (Neg); HYALINE CASTS 0-3 /LPF (NEGATIVE); MUCUS STRANDS MODERATE /LPF (Neg); RBC,URINE 0-2 /HPF (0-2); SQUAMOUS EPITHELIAL CELL,UR FEW /LPF (FEW); WBC,URINE 0-4 /HPF (0-4)
== END 2021-02-07 06:39 | disposition home or self-care (01) ==
LOC: ER 02:52
DX: R53.1 Weakness (principal); R42 Dizziness and giddiness; R29.810 Facial weakness; E11.65 Type 2 diabetes mellitus with hyperglycemia; I10 Essential (primary) hypertension; E11.42 Type 2 diabetes mellitus with diabetic polyneuropathy; Z59.0 Homelessness; Z72.89 Other problems related to lifestyle; Z79.82 Long term (current) use of aspirin; Z79.899 Other long term (current) drug therapy; F17.200 Nicotine dependence, unspecified, uncomplicated
CPT/HCPCS: 36415; 70450; 80053; 81001; 85025; 96360; 99284; J7030

== ENCOUNTER 2021-02-07 07:34 | Emergency (ER) | payer MEDICARE, MEDICAID ==
[~2021-02-07] VITALS: Ht 182.9 cm; Wt 104.1 kg
[2021-02-07] MEDS ORDERED: insulin regular, human 10 units/0.1 ml syringe IV ONE ×2 (07:50→08:35)
[2021-02-07] MEDS ORDERED: normal saline 1000ML IV soln IVB ONE (07:50)
[2021-02-07 08:19] VITALS: BP 161/84
== END 2021-02-07 10:00 | disposition home or self-care (01) ==
LOC: ER 07:35
DX: R53.1 Weakness (principal); R26.2 Difficulty in walking, not elsewhere classified; I10 Essential (primary) hypertension; E11.42 Type 2 diabetes mellitus with diabetic polyneuropathy; Z59.0 Homelessness; Z98.890 Other specified postprocedural states; Z79.82 Long term (current) use of aspirin; Z79.899 Other long term (current) drug therapy; W18.30XA Fall on same level, unspecified, initial encounter; Z91.81 History of falling; Y93.89 Activity, other specified; Y92.89 Other specified places as the place of occurrence of the external cause; Y99.8 Other external cause status
CPT/HCPCS: 82948; 96361; 96374; 99284; J1815; J7030